=== PATIENT | female | born 1990 | race Two or more races ===

== ENCOUNTER 2025-01-30 08:21 | Outpatient (AMB) | payer OTHER, SELFPAY ==
--- NOTE | 2025-01-30 12:53 | MHC.OFFVISWM ---
VS Expanded 01/30/25 13:06 Height 5 ft 2 in Weight 269 lb 4 oz BMI 49.2 Body Fat % 47.7 Body Fat Mass 128.6 Fat Free Mass 140.6 Visceral Fat Rating 15 Body Water % 37.4 Body Water Mass 100.8 Basal Metabolic Rate/Score 2,024 Intake Visit Reasons: TV [employer] SWL/MWL BMI 49.3 Allergies sulfamethoxazole (From Bactrim) Allergy (Unknown, Verified 01/30/25 12:53) Unknown trimethoprim (From Bactrim) Allergy (Unknown, Verified 01/30/25 12:53) Unknown nuts Allergy (Unknown, Uncoded 01/30/25 12:53) Unknown Medication List - Last Reconciled 01/30/25 by Luis Antonio Romero MD albuterol sulfate 90 mcg/actuation (Ventolin HFA) 2 puffs inhalation Q6H PRN amitriptyline 60 mg PO DAILY citalopram 40 mg PO DAILY clonidine HCl 0.1 mg PO BEDTIME esomeprazole magnesium (Nexium) 20 mg PO DAILY lamotrigine 100 mg PO DAILY HPI 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: Details: Start time: 12.51m, End time: 1.36pm ?I spent 40 minutes speaking with the patient on the phone plus an additional 5 minutes reviewing and updating records for a total of 45 minutes HPI Comments Details: Previous weight loss efforts: self diet and exercise, Wegovy to 2.4mg: lost 24 lbs, Zepbound to 5mg: no weight loss Wakes up: 6am, Sleeps: 12am Breakfast: skips Lunch: skips Dinner: 7pm (pasta, potatoes, pizza) Snacks: snacks 3 times before dinner (donuts, crackers), after dinner (same) Exercise: has a stationary bike that tracks calories, stair-stepper (tracks calories) Beverages: Coffee (20oz/d with cream and sugar), Tea: none, Soda: regular Coke (3 cans/d), Juice: none, ETOH: 1/2 months PFSH Medical History (Updated 01/30/25 @ 12:59 by Luis Antonio Romero MD) Migraines Bipolar 1 disorder Anxiety Depression Asthma GERD (gastroesophageal reflux disease) Sleep apnea Non-insulin dependent type 2 diabetes mellitus Morbid obesity Surgical History (Updated 01/30/25 @ 12:59 by Luis Antonio Romero MD) History of bilateral carpal tunnel release Telehealth Telehealth Telehealth Platform: Telephone Location of provider rendering services: practice address Location of patient: address on file Patient Identification confirmed using: Name, : Yes Telehealth method: voice only Patient verbally consented to treatment: Yes Patient verbally consented to billing insurance company: Yes Patient informed of any privacy concerns related to visit: Yes Minutes spent on Phone/Video with Pt.: 45 Assessment & Plan Assessment & Plan (1) Morbid obesity: Code(s): E66.01 - Morbid (severe) obesity due to excess calories Category: Medical Plan: 1. As we discussed, based on your present BMI you are approximately 130lbs overweight. In my opinion, for any weight loss strategy to be successful should have a high probability to help you lose at least 100lbs out of 130lbs of the extra weight you carry. We discussed in detail the available therapeutic options: 1) our lifestyle intervention program that has an average weight loss of 10% in 3 months.?Some patients continue it for longer and have lost over 50lbs but this is not common. Our lifestyle program can be provided by me. I will provide you with a link to use the chet if you choose to do so. We use protein shakes and protein bars to replace some of the meals of the day and cover your appetite better. We will decide together the exact combination. 2) Weight loss medications: these can be used in conjunction with our lifestyle program or you may choose to use them without following a lifestyle program from my program but your own. As we discussed, your insurance will not cover the weight loss injections. You can buy only the Phentermine pill which is not expensive. It is well tolerated and most common side effects include blood pressure elevation, dry mouth, difficulty sleeping and heart palpitations. We also discussed that you can self pay for the weight loss injections and the cost is $249 for the first month and $499 for any other month thereafter. These payments go to the drug company directly and not to us. As we discussed, this is not a long term care administrator solution, as most patients put all the weight back once they are off the medication. 3) We also discussed about the lap sleeve gastrectomy. In my opinion this is the best option to solve your problem based on your situation and should be used in conjunction with the two previous options. A good strategy to make this decision to proceed with surgery, as soon as you achieve a specific goal with the lifestyle intervention and medication options: to lose least 10% of your initial weight in 3 months. ?I emphasized the importance of close follow-up, adherence to instructions and good communication. The surgery does not replace the need to change your lifestlyle which is the cause of the obesity problem. The surgery provides the motivation to try again to change your lifestyle, it reduces the appetite and make the transition to a better lifestyle easier and doubles the amount of weight you would lose compared to doing the lifestyle change without the surgery. You will need to be on a liquid diet with protein shakes for 2 weeks before surgery to maximize weight loss and boost your nutritional status to recover better from surgery and also for the first two weeks after surgery to let the stomach heal before we introduce other foods. After the first 2 weeks we will introduce protein bars and soft foods like scrambled eggs, cottage cheese and yogurt and after the 6th week will introduce meat, fish and cooked vegetables in small amounts. Over time you should be able to eat everything in small amounts. Side effects like nausea, vomiting, heartburn or abdominal pain are not common in the practice unless you are not following in the practice. This operation requires lifetime commitment to following in our practice and communication with me. You will much less weight and experience side effects if you don?t communicate or not following in the practice. Complications are rare and in our practice is about 1/10 of the national average. Orders: Orders TSH reflex Free T4 Today E11.9 - Type 2 diabetes mellitus without complications, E66.01 - Morbid (severe) obesity due to excess calories Comprehensive Met. Panel Today E11.9 - Type 2 diabetes mellitus without complications, E66.01 - Morbid (severe) obesity due to excess calories Complete Blood Count Auto Diff Today E11.9 - Type 2 diabetes mellitus without complications, E66.01 - Morbid (severe) obesity due to excess calories Ferritin Today E11.9 - Type 2 diabetes mellitus without complications, E66.01 - Morbid (severe) obesity due to excess calories Vitamin B12 and Folate Today E11.9 - Type 2 diabetes mellitus without complications, E66.01 - Morbid (severe) obesity due to excess calories Hemoglobin A1c Today E11.9 - Type 2 diabetes mellitus without complications, E66.01 - Morbid (severe) obesity due to excess calories Vitamin A Today E11.9 - Type 2 diabetes mellitus without complications, E66.01 - Morbid (severe) obesity due to excess calories Zinc Today E11.9 - Type 2 diabetes mellitus without complications, E66.01 - Morbid (severe) obesity due to excess calories IRON PROFILE Today E11.9 - Type 2 diabetes mellitus without complications, E66.01 - Morbid (severe) obesity due to excess calories C Reactive Protein Today E11.9 - Type 2 diabetes mellitus without complications, E66.01 - Morbid (severe) obesity due to excess calories Insulin Today E11.9 - Type 2 diabetes mellitus without complications, E66.01 - Morbid (severe) obesity due to excess calories Vitamin B1 Today E11.9 - Type 2 diabetes mellitus without complications, E66.01 - Morbid (severe) obesity due to excess calories Lipid Panel Today E11.9 - Type 2 diabetes mellitus without complications, E66.01 - Morbid (severe) obesity due to excess calories Vitamin D 25-OH Total Today E11.9 - Type 2 diabetes mellitus without complications, E66.01 - Morbid (severe) obesity due to excess calories
[2025-01-30 13:06] VITALS: BMI 49.2
== END 2025-01-30 13:37 | disposition home or self-care (01) ==
LOC: HO.HBS 08:21
PROVIDERS: PCP Nurse Practitioner Family; Visit Provider Surgery
DX: E66.01 Morbid (severe) obesity due to excess calories (principal)
CPT/HCPCS: 99204